=== PATIENT | female | born 1995 | race African-American/Black ===

== ENCOUNTER 2021-03-16 02:34 | Emergency (ER) | payer MEDICAID ==
[~2021-03-16] VITALS: Ht 167.6 cm; Wt 131.0 kg
--- NOTE | 2021-03-16 02:59 | PHYS DOC ---
General Adult EDM: Chief Complaint: MULTIPLE COMPLAINTS HPI: HPI: Patient is a 25 year old [f__sex] who presents with [] Review of Systems: Review of Systems: Fourteen body systems of review of systems have been reviewed. See HPI for pertinent positives and negative responses, other ramon all other systems are negative, non-pertinent or non-contributory Heart Score: Risk Factors: Risk Factors: DM, Current or recent (<one month) smoker, HTN, HLP, family history of CAD, obesity. Risk Scores: Score 0 - 3: 2.5% MACE over next 6 weeks - Discharge Home Score 4 - 6: 20.3% MACE over next 6 weeks - Admit for Clinical Observation Score 7 - 10: 72.7% MACE over next 6 weeks - Early Invasive Strategies Physical Exam: PE: Constitutional: Well developed, well nourished, no acute distress, non-toxic appearance. HENT: Normocephalic, atraumatic, bilateral external ears normal, oropharynx moist, no oral exudates, nose normal. Eyes: PERRLA, EOMI, conjunctiva normal, no discharge. Neck: Normal range of motion, no tenderness, supple, no stridor. Cardiovascular: Heart rate regular, sinus rhythm, no murmurs rubs or gallops Lungs & Thorax: Bilateral breath sounds clear to auscultation Abdomen: Bowel sounds normal, soft, no tenderness, no masses, no pulsatile masses. Nonsurgical abdomen, no peritoneal signs Skin: Warm, dry, no erythema, no rash. Back: No tenderness, no CVA tenderness. Extremities: No tenderness, no cyanosis, no clubbing, ROM intact, no edema. Neurologic: Alert and oriented X 3, grossly normal motor & sensory function, no focal deficits noted. Psychologic: Affect normal, judgement normal, mood normal. Current Patient Data: Labs: Laboratory Tests Test 03/16/21 02:47 POC Urine HCG, Qualitative Hcg negative (Negative) Vital Signs: Vital Signs Date Time Temp Pulse Resp B/P (MAP) Pulse Ox O2 Delivery O2 Flow Rate FiO2 03/16/21 02:55 98.8 102 20 167/92 (117) 98 Room Air 98.8 Vital Signs Date Time Temp Pulse Resp B/P (MAP) Pulse Ox O2 Delivery O2 Flow Rate FiO2 03/16/21 02:55 98.8 102 20 167/92 (117) 98 Room Air 98.8 EKG: EKG: EKG ordered and interpreted by myself at 0258 hrs. as sinus tachycardia with a rate of 192 bpm, unremarkable intervals, no axis deviation, T wave inversions noted in lead III otherwise no obvious ischemic findings, no STEMI Radiology/Procedures: Radiology/Procedures: EXAM: CHEST ONE VIEW. HISTORY: Cough. COMPARISON: None. FINDINGS: A frontal view of the chest is obtained. There are no confluent infiltrates. There is no pneumothorax or pleural effusion. The heart is not enlarged. IMPRESSION: 1. No confluent infiltrates. Electronically signed by: Gladys Laird MD (03/16/2021 4:42 AM) [facility] Course & Med Decision Making: Course & Med Decision Making Pertinent Labs and Imaging studies reviewed. (See chart for details) [] Dragon Disclaimer: Dragon Disclaimer: This electronic medical record was generated, in whole or in part, using a voice recognition dictation system. Departure Departure Impression: Primary Impression: Viral syndrome Additional Impressions: Person under investigation for COVID-19 Elevated blood pressure reading without diagnosis of hypertension Disposition: 01 HOME / SELF CARE / HOMELESS Condition: STABLE Patient Instructions: Viral Syndrome Additional Instructions: You were seen for a constellation of symptoms and possible infection with COVID- 19. Your physical exam was reassuring. Your chest x-ray was normal. We tested you for COVID-19 but this test does not come back for 1 to 2 days. In the meantime you need to quarantine yourself at home away from all other individuals, especially those who are elderly or have any other chronic health issues or an immunocompromised status. Alternate Tylenol and ibuprofen as needed for body aches and pain. If your test does come back positive you need to quarantine yourself for 10 days until symptom-free. You should make sure to drink plenty of fluids and get plenty of rest. We discussed utility of performing further diagnostic work-up such as labs and imaging in ER but this was deferred. As such, it is pertinent you contact your primary care physician once they open today to review ER visit and review need for repeat evaluation in outpatient setting when it is safe to do so. Please keep a dedicated blood pressure log for review at your outpatient primary care office as your blood pressure was elevated throughout entirety of ER visit today without prior history of hypertension. You should return to the ED if you develop worsening cough, shortness of breath, chest pain, or any other new or concerning symptoms. BEBA DAVILA DO March 16, 2021 02:59
--- NOTE | 2021-03-16 04:45 | RAD ---
EXAM: CHEST ONE VIEW. HISTORY: Cough. COMPARISON: None. FINDINGS: A frontal view of the chest is obtained. There are no confluent infiltrates. There is no pneumothorax or pleural effusion. The heart is not en larged. IMPRESSION: 1. No confluent infiltrates. Electronically signed by: Gladys Laird MD (03/16/2021 4:42 AM) [facility]
[2021-03-16 04:55] VITALS: BP 161/93
--- NOTE | 2021-03-16 13:43 | NUR ---
IP: Attempted to contact pt concerning COVID results. No answer, left a voicemail to return the call.
--- NOTE | 2021-03-16 16:40 | NUR ---
IP: Pt returned call and I informed her of the negative COVID test. Pt verbalized understanding.
--- NOTE | 2021-03-17 08:00 | EKG ---
[facility] [address] [place] [address] Test Date: 2021-03-16 Test Time: 02:51:39 Pat Name: MIGNON GURROLA Department: Room: Gender: F [employer]ervationist: : 1995 Requested By: BEBA DAVILA Order Number: [id number] Reading MD: Measurements Intervals [place] Rate: 102 P: 47 W[place]: 142 QRS: 59 QRSD: 80 T: 7 QT: 326 QTc: 429 Interpretive Statements SINUS TACHYCARDIA LEFT ATRIAL ABNORMALITY ABNORMAL ECG RI6.02 No previous ECG available for comparison
== END 2021-03-16 05:02 | disposition home or self-care (01) ==
LOC: ER 02:34
DX: B34.9 Viral infection, unspecified (principal); Z20.822 Contact with and (suspected) exposure to COVID-19; R03.0 Elevated blood-pressure reading, without diagnosis of hypertension
CPT/HCPCS: 71045; 81025; 93005; 99285; U0003; U0005